=== PATIENT | male | born 1960 | race Caucasian/White ===

== ENCOUNTER 2020-12-13 20:44 | Emergency (ER) | payer BC ==
[~2020-12-13] VITALS: Ht 193 cm; Wt 88.6 kg
[2020-12-13 20:51] VITALS: BP 139/78; Ht 193 cm; Wt 88.6 kg
[2020-12-13] MEDS ORDERED: MECLIZINE HCL25 MG PO (20:52)
[2020-12-13] MEDS ORDERED: ZOFRAN4 MG PO (20:53)
[2020-12-13 21:31] LABS: EOSINOPHILS 1.8 % (0-7); HEMATOCRIT 41.5 % (42.0-54.0); HEMOGLOBIN 13.9 g/dL (13.5-17.5); LYMPHOCYTES 31.8 % (15-50); MCH 33.1 pg (26.0-34.0); MCHC 33.6 g/dL (31.0-37.0); MCV 98.7 fL (80.0-100.0); MEAN PLATELET VOLUME 6.6 fL (7.4-10.4); MONOCYTES 9.4 % (2-11); PLATELET COUNT 215 10x3/uL (130-400); RBC 4.21 10x6/uL (4.20-6.10); RDW 14.1 % (11.5-14.5); WBC 6.6 10x3/uL (4.8-10.8)
[2020-12-13 21:41] LABS: APTT 29.3 SECONDS (22.8-39.4); CALC OSMOLALITY 281 mosm/kg (275-300); CALCIUM 8.4 mg/dL (8.5-10.1); CHLORIDE - SERUM 106 mmol/L (98-107); CREATININE - SERUM 0.9 mg/dL (0.6-1.3); GLUCOSE 103 mg/dL (74-106); INR 1.15 (0.85-1.17); POTASSIUM - SERUM 3.7 mmol/L (3.5-5.1); PROTIME 13.6 SECONDS (11.6-15.0); SODIUM 139 mmol/L (136-145); UREA NITROGEN 24 mg/dL (7-18); eGFR NON AFRICAN AMERICAN > 90 mL/min (90-120)
[2020-12-13 21:57] LABS: ALBUMIN 3.2 g/dL (3.4-5.0); ALKALINE PHOSPHATASE 53 U/L (30-120); ALT (SGPT) 23 U/L (10-68); BILIRUBIN - TOTAL 0.17 mg/dL (0.2-1.3); CREATINE KINASE 77 UL (21-232); PROTEIN - SERUM 6.8 g/dL (6.4-8.2)
[2020-12-13 21:59] LABS: TROPONIN-I < 0.017 ng/mL (0.000-0.060)
== END 2020-12-13 22:49 | disposition home or self-care (01) ==
LOC: D.ER 20:44
PROVIDERS: Family Medicine
DX: R55 Syncope and collapse (principal)